=== PATIENT | female | born 1985 | race Two or more races ===

== ENCOUNTER 2020-05-02 12:17 | Emergency (ER) | payer OTHER ==
[~2020-05-02] VITALS: Ht 160 cm; Wt 90.9 kg
[2020-05-02] MEDS ORDERED: IBUPROFEN 800 MG TABLET PO ONE (13:00)
[2020-05-02 13:52] VITALS: BP 138/80
== END 2020-05-02 14:00 | disposition home or self-care (01) ==
LOC: EMS 13:05
DX: K05.10 Chronic gingivitis, plaque induced (principal); Z90.89 Acquired absence of other organs